=== PATIENT | male | born 1940 | race Caucasian/White ===

== ENCOUNTER 2016-11-08 11:08 | Observation (INO) | payer OTHER ==
[~2016-11-08] VITALS: Ht 175.3 cm; Wt 97.0 kg
[2016-11-08 11:16] VITALS: BP 152/70; PULSE 64; RESP 19; TEMP 97.8; O2SAT 98
[2016-11-08 11:35] VITALS: BP_SYST 113; BP_SYST 132; BP_SYST 146; BP_DIAS 61; BP_DIAS 63; BP_DIAS 70; RESP 14; RESP 15; RESP 17
--- NOTE | 2016-11-08 11:36 | PD ---
HPI Chief Complaint: Syncope/Near-Syncope Time Seen by Provider: 11:27 Travel History International Travel<30 days: No Contact w/Intl Traveler<30days: No Traveled to known affect area: No History of Present Illness HPI 76-year-old male with PMH of HTN, HLD, gout, DM, A. fib, on Xarelto presents to the ED via EMS after near syncopal episode this morning. Patient states that he was sitting at [employer] having a bloody [place], [place] when he experienced tunnel vision and felt weak and very diaphoretic. This lasted approximately 10-15 minutes and was improved after he was lying on the EMS stretcher. Per EMS the patient was hypotensive on scene. He denies associated headache, dizziness, palpitations, chest pain, shortness of breath, nausea, vomiting, weakness of the extremities. Symptoms resolved on presentation. He states "I feel a ready to go home." He's never had an episode like this in the past. He endorses taking his medications this morning. Patient endorses recent medication changes. Previously taking hydralazine 50 mg twice a day, now 100 mg 3 times a day. Followed by Dr. Madison Merino. [facility] Past Medical History Hx Anticoagulant Therapy: Yes (XARELTO) Cardiovascular Problems: Yes (CARDIAC CATH) Diabetes: Yes Social History Tobacco Use: No Allergies-Medications (Allergen,Severity, Reaction): Coded Allergies: No Known Allergies (Unverified , 11/08/16) Reported Meds & Prescriptions Reported Meds & Active Scripts Active Reported Xarelto (Rivaroxaban) 20 Mg Tab 20 Mg PO DAILY Valsartan 320 Mg Tab 320 Mg PO DAILY Amiodarone (Amiodarone HCl) 100 Mg Tab 100 Mg PO DAILY Hydralazine (Hydralazine HCl) 100 Mg Tab 100 Mg PO TID Take with meals Carvedilol 25 Mg Tab 25 Mg PO BID Metformin (Metformin HCl) 500 Mg Tab 500 Mg PO BIDPC With meals Atorvastatin (Atorvastatin Calcium) 40 Mg Tab 40 Mg PO HS Allopurinol 300 Mg Tab 300 Mg PO DAILY Review of Systems Except as stated in HPI: all other systems reviewed are Neg Physical Exam Narrative GENERAL: Well-nourished, well-developed alert white male in no acute distress. SKIN: Focused skin assessment warm, diaphoretic. HEAD: Normocephalic. EYES: No scleral icterus. No injection or drainage. PERRLA. EOMI. NECK: Supple, trachea midline. No JVD or lymphadenopathy. CARDIOVASCULAR: Irregularly irregular rate and rhythm without murmurs, gallops, or rubs. RESPIRATORY: Breath sounds clear and equal bilaterally. No accessory muscle use. GASTROINTESTINAL: Abdomen soft, non-tender, nondistended. Active bowel sounds. MUSCULOSKELETAL: No cyanosis, or edema. NEUROLOGICAL: Awake and alert. Cranial nerves II through XII intact. Motor and sensory grossly within normal limits. 5/5 muscle strength in all muscle groups. Normal speech. BACK: Nontender without obvious deformity. No CVA tenderness. Data Data Last Documented VS Vital Signs Date Time Temp Pulse Resp B/P (MAP) Pulse Ox O2 Delivery O2 Flow Rate FiO2 11/08/16 11:35 68 14 132/61 (84) 62 17 146/70 (95) 71 15 113/63 (80) 11/08/16 11:25 Room Air 11/08/16 11:16 97.8 98 Orders Orders Electrocardiogram (11/08/16 ) Electrocardiogram (11/08/16 11:25) Complete Blood Count With Diff (11/08/16 11:25) Comprehensive Metabolic Panel (11/08/16 11:25) Magnesium (Mg) (11/08/16 11:25) B-Type Natriuretic Peptide (11/08/16 11:25) Ckmb (Isoenzyme) Profile (11/08/16 11:25) Troponin I (11/08/16 11:25) Act Partial Throm Time (Ptt) (11/08/16 11:25) Prothrombin Time / Inr (Pt) (11/08/16 11:25) Urinalysis - C+S If Indicated (11/08/16 11:25) Chest, Single Ap (11/08/16 11:25) Ct Brain W/O Iv Contrast(Rout) (11/08/16 11:25) Ecg Monitoring (11/08/16 11:25) Iv Access Insert/Monitor (11/08/16 11:25) Oximetry (11/08/16 11:25) Orthostatic Vital Signs (11/08/16 11:25) Potassium Chloride (Kcl) (11/08/16 12:45) Admit Order (Ed Use Only) (11/08/16 13:27) Labs Laboratory Tests Test 11/08/16 11:30 11/08/16 12:40 White Blood Count 7.0 TH/MM3 Red Blood Count 5.03 MIL/MM3 Hemoglobin 15.6 GM/DL Hematocrit 46.9 % Mean Corpuscular Volume 93.2 FL Mean Corpuscular Hemoglobin 30.9 PG Mean Corpuscular Hemoglobin Concent 33.2 % Red Cell Distribution Width 14.7 % Platelet Count 157 TH/MM3 Mean Platelet Volume 9.2 FL Neutrophils (%) (Auto) 61.2 % Lymphocytes (%) (Auto) 26.2 % Monocytes (%) (Auto) 9.0 % Eosinophils (%) (Auto) 2.4 % Basophils (%) (Auto) 1.2 % Neutrophils # (Auto) 4.3 TH/MM3 Lymphocytes # (Auto) 1.8 TH/MM3 Monocytes # (Auto) 0.6 TH/MM3 Eosinophils # (Auto) 0.2 TH/MM3 Basophils # (Auto) 0.1 TH/MM3 CBC Comment DIFF FINAL Differential Comment Prothrombin Time 12.6 SEC Prothromb Time International Ratio 1.1 RATIO Activated Partial Thromboplast Time 31.7 SEC Blood Urea Nitrogen 19 MG/DL Creatinine 1.54 MG/DL Random Glucose 127 MG/DL Total Protein 6.4 GM/DL Albumin 3.3 GM/DL Calcium Level 8.5 MG/DL Magnesium Level 1.8 MG/DL Alkaline Phosphatase 87 U/L Aspartate Amino Transf (AST/SGOT) 16 U/L Alanine Aminotransferase (ALT/SGPT) 24 U/L Total Bilirubin 0.6 MG/DL Sodium Level 141 MEQ/L Potassium Level 3.3 MEQ/L Chloride Level 104 MEQ/L Carbon Dioxide Level 23.2 MEQ/L Anion Gap 14 MEQ/L Estimat Glomerular Filtration Rate 44 ML/MIN Total Creatine Kinase 66 U/L Troponin I LESS THAN 0.02 NG/ML B-Type Natriuretic Peptide 98 PG/ML Urine Color YELLOW Urine Turbidity CLEAR Urine pH 6.0 Urine Specific [place] 1.011 Urine Protein 30 mg/dL Urine Glucose (UA) NEG mg/dL Urine Ketones NEG mg/dL Urine Occult Blood NEG Urine Nitrite NEG Urine Bilirubin NEG Urine Urobilinogen LESS THAN 2.0 MG/DL Urine Leukocyte Esterase NEG Urine RBC 1 /hpf Urine WBC LESS THAN 1 /hpf Urine Hyaline Casts 1 /lpf Microscopic Urinalysis Comment CULT NOT INDICATED MDM Medical Decision Making Medical Screen Exam Complete: Yes Emergency Medical Condition: Yes Differential Diagnosis Arrhythmia versus orthostatic hypotension versus medication error versus hypoglycemia versus metabolic derangement versus ACS versus ICH versus other Narrative Course 76-year-old male with PMH of HTN, HLD, gout, DM, A. fib, on Xarelto presents to the ED via EMS after near syncopal episode this morning. Endorses tunnel vision , weakness and very diaphoretic. This lasted approximately 10-15 minutes and was improved after he was lying on the EMS stretcher. Per EMS the patient was hypotensive on scene. He denies associated headache, dizziness, palpitations, chest pain, shortness of breath, nausea, vomiting, weakness of the extremities. Symptoms resolved on presentation. He states "I feel a ready to go home." Endorses recent medication changes-- previously taking hydralazine 50 mg twice a day, now 100 mg 3 times a day. Followed by Dr. Merino. Vitals reviewed. Orthostatic BP positive. Physical exam reveals a nontoxic appearing, diaphoretic white male in no acute distress. No focal neuro deficits. Irregularly irregular rate without appreciable M/R/G. Chest CTAB. Abdomen soft and nontender. No lower extremity edema. CBC: WBC 7.0. Hemoglobin 15.6. Coags: INR 1.1. CMP: BUN 19, creatinine 1.54. Potassium 3.3. Glucose 127. BNP 98. UA: no culture indicated Cardiac enzymes: Negative 1. EKG: Rate 58, sinus bradycardia. NJ interval 176, QRS 139, QTC 491 ms. Normal axis. Right BBB. Evidence of old anterior IN. Reviewed by Dr. Lakhani. CXR: Cannot exclude mediastinal mass versus substernal thyroid mass. Mass effect on trachea. CT head: Mild volume loss and white matter disease per radiology read. I discussed the patient, results of the workup and plan with Dr. Lakhani. Dr. Lakhani discussed the workup with the patient and his family who are agreeable to admission. The patient is aware of the nodule in the throat. I spoke with Dr. Holbrook who agrees to accept the patient to the medicine service. Please see medicine notes for disposition. Matilde Day Nov 08, 2016 11:36
[2016-11-08] MEDS ORDERED: HYDR-3801 PO (11:46)
[2016-11-08] MEDS ORDERED: AMIO0.1T PO (11:46)
[2016-11-08] MEDS ORDERED: CARV25TA PO (11:46)
[2016-11-08] MEDS ORDERED: XARE20TA PO (11:46)
[2016-11-08] MEDS ORDERED: METF500T PO (11:46)
[2016-11-08] MEDS ORDERED: ATOR40TA16 PO (11:46)
[2016-11-08] MEDS ORDERED: ALLO300T2 PO (11:46)
[2016-11-08] MEDS ORDERED: VALS1TAB70 PO (11:46)
[2016-11-08 11:55] LABS: AUTOMATED NEUTROPHIL # 4.3 TH/MM3 (1.8-7.7); BASOPHIL # 0.1 TH/MM3 (0-0.2); BASOPHIL % 1.2 % (0.0-2.0); EOSINOPHIL # 0.2 TH/MM3 (0-0.4); EOSINOPHIL % 2.4 % (0.0-4.0); HEMATOCRIT 46.9 % (39.0-51.0); HEMO FLAGS DIFF FINAL; LYMPH % 26.2 % (9.0-44.0); LYMPHOCYTE # 1.8 TH/MM3 (1.0-4.8); MEAN CELL VOLUME 93.2 FL (80.0-100.0); MEAN CORPUSCULAR HEMOGLOBIN 30.9 PG (27.0-34.0); MEAN CORPUSCULAR HGB CONC 33.2 % (32.0-36.0); NEUT % 61.2 % (16.0-70.0); PLATELET COUNT 157 TH/MM3 (150-450); RED BLOOD COUNT 5.03 MIL/MM3 (4.50-5.90); RED CELL DISTRIBUTION WIDTH 14.7 % (11.6-17.2)
[2016-11-08 12:02] LABS: APTT (PATIENT) 31.7 SEC (24.3-30.1); INTERNATIONAL NORMALIZED RATIO 1.1 RATIO; PROTHROMBIN TIME - PATIENT 12.6 SEC (9.8-11.6)
[2016-11-08 12:15] LABS: ALT (GPT) 24 U/L (12-78); ANION GAP 14 MEQ/L (5-15); AST (GOT) 16 U/L (15-37); BICARBONATE 23.2 MEQ/L (21.0-32.0); BLOOD UREA NITROGEN 19 MG/DL (7-18); CHLORIDE 104 MEQ/L (98-107); GLOMERULAR FILTRATION RATE 44 ML/MIN (>89); MAGNESIUM 1.8 MG/DL (1.5-2.5); POTASSIUM 3.3 MEQ/L (3.5-5.1); SODIUM (NA) 141 MEQ/L (136-145)
--- NOTE | 2016-11-08 12:17 | RADRPT ---
EXAM DATE/TIME: 11/08/2016 11:57 [facility] COMPARISON: No previous studies available for comparison. INDICATIONS : Sudden onset of unresponsiveness and became diaphoretic. RADIATION DOSE: 36.45 CTDIvol (mGy) MEDICAL HISTORY : Hypertension. Diabetes mellitus type 2. SURGICAL HISTORY : Coronary artery stent. ENCOUNTER: Initial ACUITY: 1 day PAIN SCALE: 2/10 LOCATION: cranial TECHNIQUE: Multiple contiguous axial images were obtained of the head. Using automated exposure control and adj ustment of the mA and/or kV according to patient size, radiation dose was kept as low as reasonably a chievable to obtain optimal diagnostic quality images. DICOM format image data is available electro nically for review and comparison. FINDINGS: Mild volume loss and patchy hypodensity in the periventricular white matter and bilateral centrum galina iovale he, nonspecific but most likely on the basis of mild chronic microvascular ischemic disease. N o signs of acute infarct, hemorrhage or mass. CONCLUSION: Mild volume loss and white matter disease. Damián Martinez MD on November 08, 2016 at 12:15 Board Certified Radiologist. This report was verified electronically.
[2016-11-08 12:20] LABS: ALKALINE PHOSPHATASE 87 U/L (45-117); CREATINE KINASE 66 U/L (39-308); TOTAL BILIRUBIN ADULT 0.6 MG/DL (0.2-1.0)
--- NOTE | 2016-11-08 12:21 | RADRPT ---
EXAM DATE/TIME: 11/08/2016 11:54 [facility] COMPARISON: No previous studies available for comparison. INDICATIONS : Syncope, short of breath. MEDICAL HISTORY : None. SURGICAL HISTORY : Cardiac cath ENCOUNTER: Initial ACUITY: 1 day PAIN SCORE: 0/10 LOCATION: Bilateral chest FINDINGS: Cardiomegaly and aortic calcification. There is slight patient rotation to the right however the trac hea appears slightly deviated to the right of midline with findings suggesting mass effect on the lef t lateral aspect of the trachea also be related to a mediastinal mass or substernal thyroid mass. CONCLUSION: Cannot exclude a mediastinal mass versus substernal thyroid mass demonstrating mass effect on the tra giuliana. Lungs are clear. Damián Martinez MD on November 08, 2016 at 12:18 Board Certified Radiologist. This report was verified electronically.
[2016-11-08] MEDS ORDERED: POTASSIUM CHLORIDE 10 MEQ CONTROLLED RELEASE TAB PO ONE (12:45)
[2016-11-08 12:55] LABS: BLOOD, URINE NEG (NEG); COMMENT (UR) CULT NOT INDICATED; CULTURE IF INDICATED CULT NOT INDICATED; GLUCOSE,URINE NEG (NEG); HYALINE CAST, URINE 1 /lpf (RARE); KETONE, URINE NEG (NEG); NITRITE,URINE NEG (NEG); URINE COLOR YELLOW (YELLW/STRAW)
--- NOTE | 2016-11-08 12:57 | PD ---
Physical Exam Narrative I, Dr. Lakhani, have reviewed the advance practice practitioner's documentation and am in agreement, met with the patient face to face, made the diagnosis, and the medical decision making was done by me. *My assessment and Findings: Near syncope vs. arrhythmia vs. dehydration 76yo M with afib on xarelto, DM presents to the ED with c/o episode of near syncope while sitting down at breakfast today. Pt states he was weak, diaphoretic and felt like he almost passed out. As per EVAC, he had initial rhythm that showed afib vs. a flutter and then became sinus. Denies any chest pain or sob. Labs reviewed, no leukocytosis. Troponin negative. 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 Pt knows about this. CT brain negative. UA negative. Will admit pt for near syncope work up. Data Data Last Documented VS Vital Signs Date Time Temp Pulse Resp B/P (MAP) Pulse Ox O2 Delivery O2 Flow Rate FiO2 11/08/16 11:35 68 14 132/61 (84) 62 17 146/70 (95) 71 15 113/63 (80) 11/08/16 11:25 Room Air 11/08/16 11:16 97.8 98 Orders Orders Electrocardiogram (11/08/16 ) Complete Blood Count With Diff (11/08/16 11:25) Comprehensive Metabolic Panel (11/08/16 11:25) Magnesium (Mg) (11/08/16 11:25) B-Type Natriuretic Peptide (11/08/16 11:25) Ckmb (Isoenzyme) Profile (11/08/16 11:25) Troponin I (11/08/16 11:25) Act Partial Throm Time (Ptt) (11/08/16 11:25) Prothrombin Time / Inr (Pt) (11/08/16 11:25) Urinalysis - C+S If Indicated (11/08/16 11:25) Chest, Single Ap (11/08/16 11:25) Ct Brain W/O Iv Contrast(Rout) (11/08/16 11:25) Ecg Monitoring (11/08/16 11:25) Iv Access Insert/Monitor (11/08/16 11:25) Oximetry (11/08/16 11:25) Orthostatic Vital Signs (11/08/16 11:25) Potassium Chloride (Kcl) (11/08/16 12:45) Admit Order (Ed Use Only) (11/08/16 13:27) Labs Laboratory Tests Test 11/08/16 11:30 11/08/16 12:40 White Blood Count 7.0 TH/MM3 Red Blood Count 5.03 MIL/MM3 Hemoglobin 15.6 GM/DL Hematocrit 46.9 % Mean Corpuscular Volume 93.2 FL Mean Corpuscular Hemoglobin 30.9 PG Mean Corpuscular Hemoglobin Concent 33.2 % Red Cell Distribution Width 14.7 % Platelet Count 157 TH/MM3 Mean Platelet Volume 9.2 FL Neutrophils (%) (Auto) 61.2 % Lymphocytes (%) (Auto) 26.2 % Monocytes (%) (Auto) 9.0 % Eosinophils (%) (Auto) 2.4 % Basophils (%) (Auto) 1.2 % Neutrophils # (Auto) 4.3 TH/MM3 Lymphocytes # (Auto) 1.8 TH/MM3 Monocytes # (Auto) 0.6 TH/MM3 Eosinophils # (Auto) 0.2 TH/MM3 Basophils # (Auto) 0.1 TH/MM3 CBC Comment DIFF FINAL Differential Comment Prothrombin Time 12.6 SEC Prothromb Time International Ratio 1.1 RATIO Activated Partial Thromboplast Time 31.7 SEC Blood Urea Nitrogen 19 MG/DL Creatinine 1.54 MG/DL Random Glucose 127 MG/DL Total Protein 6.4 GM/DL Albumin 3.3 GM/DL Calcium Level 8.5 MG/DL Magnesium Level 1.8 MG/DL Alkaline Phosphatase 87 U/L Aspartate Amino Transf (AST/SGOT) 16 U/L Alanine Aminotransferase (ALT/SGPT) 24 U/L Total Bilirubin 0.6 MG/DL Sodium Level 141 MEQ/L Potassium Level 3.3 MEQ/L Chloride Level 104 MEQ/L Carbon Dioxide Level 23.2 MEQ/L Anion Gap 14 MEQ/L Estimat Glomerular Filtration Rate 44 ML/MIN Total Creatine Kinase 66 U/L Troponin I LESS THAN 0.02 NG/ML B-Type Natriuretic Peptide 98 PG/ML Urine Color YELLOW Urine Turbidity CLEAR Urine pH 6.0 Urine Specific [place] 1.011 Urine Protein 30 mg/dL Urine Glucose (UA) NEG mg/dL Urine Ketones NEG mg/dL Urine Occult Blood NEG Urine Nitrite NEG Urine Bilirubin NEG Urine Urobilinogen LESS THAN 2.0 MG/DL Urine Leukocyte Esterase NEG Urine RBC 1 /hpf Urine WBC LESS THAN 1 /hpf Urine Hyaline Casts 1 /lpf Microscopic Urinalysis Comment CULT NOT INDICATED MDM Supervised Visit with COLETTE: Yes Diagnosis Primary Impression: Near syncope Admitting Information Admitting Physician Requests: Observation Emily Lakhani DO Nov 08, 2016 12:57
[2016-11-08] MEDS ORDERED: SODIUM CHLORIDE 0.9% FLUSH 10 ML FLUSH IV FLUSH PRN (15:45)
[2016-11-08] MEDS ORDERED: NALOXONE HCL 0.4 MG/ML AMP IV PRN (15:45)
[2016-11-08] MEDS ORDERED: GLUCAGON 1 MG/ML VIAL OTHER PRN (15:45)
[2016-11-08] MEDS ORDERED: DEXTROSE 50% IN WATER 50 ML VIAL(D50) IV PRN (15:45)
[2016-11-08] MEDS ORDERED: ONDANSETRON HCL 4 MG/2 ML VIAL IVP PRN (15:45)
[2016-11-08] MEDS ORDERED: ACETAMINOPHEN 325 MG TAB PO PRN (15:45)
[2016-11-08 15:57] VITALS: BP 163/79; PULSE 67; RESP 18; O2SAT 96
[2016-11-08] MEDS: INSULIN ASPART SUPPLEMENTAL SCALE SQ SCH ×2 (16:00→21:00)
[2016-11-08] MEDS: SODIUM CHLOR 0.9% 1000 ML INJ 1,000 ML IV SCH (16:12)
[2016-11-08] MEDS ORDERED: PILL SPLITTER OTHER PRN (16:15)
--- NOTE | 2016-11-08 16:21 | HHI.HP ---
HPI Service [facility] Hospitalists Primary Care Physician Kayli Merino M.D. Admission Diagnosis near syncopal episode Chief Complaint: near syncopy Travel History International Travel<30 Days: No Contact w/Intl Traveler <30 Da: No Traveled to Known Affected Are: No History of Present Illness This is a pleasant 76 year old male patient with a past medical history which includes DM type 2, HTN, atrial fibrillation, CAD and sleep apnea uses CPAP nightly. Patient was having breakfast today sittin at [employer] drinking a bloody Dede[employer] when he began to have, "tunnel vision, " and felt as though he was going to pass out. EMS activated. Per patient's his blood pressure was 60/38 when EMS arrived and patient was diaphoretic. Patient denies chest pain, N/V or shortness fo breath during the episode. Patient reports that prior to this morning he felt to be in his normal state of health. The near syncopal feelings were resolved once patient was laying flat in the ambulance. Patient has recently had medication changes. 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 Coronado to Hydralazine 50 mg PO QID about 4 weeks ago. Hydralazine was then again changed to 100 mg PO TID by his Host And Hostess Dr. Conti. Patient was also started on Chlorthalidone on 10/26/16. Review of Systems Constitutional: DENIES: Fatigue, Fever, Chills Endocrine: COMPLAINS OF: Polydipsia, DENIES: Heat/cold intolerance, Polyuria Eyes: COMPLAINS OF: Blurred vision Respiratory: DENIES: Cough, Sputum production, Shortness of breath Cardiovascular: DENIES: Chest pain, Palpitations, Dyspnea on Exertion Gastrointestinal: DENIES: Abdominal pain, Constipation, Diarrhea Neurologic: DENIES: Headache, Localized weakness, Speech Problems Psychiatric: DENIES: Anxiety, Confusion, Depression Past Family Social History Past Medical History DM type 2, HTN, atrial fibrillation, CAD and sleep apnea uses CPAP nightly Past Surgical History Right partial knee replacement Reported Medications Xarelto (Rivaroxaban) 20 Mg Tab 20 Mg PO DAILY Valsartan 320 Mg Tab 320 Mg PO DAILY Amiodarone (Amiodarone HCl) 100 Mg Tab 100 Mg PO DAILY Hydralazine (Hydralazine HCl) 100 Mg Tab 100 Mg PO TID Take with meals Carvedilol 25 Mg Tab 25 Mg PO BID Metformin (Metformin HCl) 500 Mg Tab 500 Mg PO BIDPC With meals Atorvastatin (Atorvastatin Calcium) 40 Mg Tab 40 Mg PO HS Allopurinol 300 Mg Tab 300 Mg PO DAILY Chlorthalidone Allergies: Coded Allergies: No Known Allergies (Unverified , 11/08/16) Family History Father secondary to [place] at age 55 Mother had CVA in her 70's then at 93 brother also has heart disease Social History Patient lives with Quit smoking cigarettes in 1983 prior to that smoked for approximately 20 years Rare ETOH use Physical Exam Vital Signs Vital Signs Date Time Temp Pulse Resp B/P (MAP) Pulse Ox O2 Delivery O2 Flow Rate FiO2 11/08/16 11:35 68 14 132/61 (84) 62 17 146/70 (95) 71 15 113/63 (80) 11/08/16 11:25 19 Room Air 11/08/16 11:16 97.8 64 19 152/70 (97) 98 Physical Exam GENERAL: This is a well-nourished, well-developed patient, in no apparent distress. ENT: Nose without bleeding, purulent drainage or septal hematoma. Throat without erythema, tonsillar hypertrophy or exudate. Uvula midline. Airway patent. NECK: Trachea midline. No JVD or lymphadenopathy. Supple, nontender. no carotid bruit auscultated CARDIOVASCULAR: irregularly irregular without murmurs, gallops, or rubs. RESPIRATORY: Clear to auscultation. Breath sounds equal bilaterally. No wheezes , rales, or rhonchi. MUSCULOSKELETAL: Extremities without clubbing, cyanosis, or edema. No joint tenderness, effusion, or edema noted. No calf tenderness. Negative Homans sign bilaterally. NEUROLOGICAL: Awake and alert. Cranial nerves II through XII intact. Motor and sensory grossly within normal limits. Five out of 5 muscle strength in all muscle groups. Normal speech. Laboratory Laboratory Tests Test 11/08/16 11:30 11/08/16 12:40 White Blood Count 7.0 Red Blood Count 5.03 Hemoglobin 15.6 Hematocrit 46.9 Mean Corpuscular Volume 93.2 Mean Corpuscular Hemoglobin 30.9 Mean Corpuscular Hemoglobin Concent 33.2 Red Cell Distribution Width 14.7 Platelet Count 157 Mean Platelet Volume 9.2 Neutrophils (%) (Auto) 61.2 Lymphocytes (%) (Auto) 26.2 Monocytes (%) (Auto) 9.0 Eosinophils (%) (Auto) 2.4 Basophils (%) (Auto) 1.2 Neutrophils # (Auto) 4.3 Lymphocytes # (Auto) 1.8 Monocytes # (Auto) 0.6 Eosinophils # (Auto) 0.2 Basophils # (Auto) 0.1 CBC Comment DIFF FINAL Differential Comment Prothrombin Time 12.6 Prothromb Time International Ratio 1.1 Activated Partial Thromboplast Time 31.7 Blood Urea Nitrogen 19 Creatinine 1.54 Random Glucose 127 Total Protein 6.4 Albumin 3.3 Calcium Level 8.5 Magnesium Level 1.8 Alkaline Phosphatase 87 Aspartate Amino Transf (AST/SGOT) 16 Alanine Aminotransferase (ALT/SGPT) 24 Total Bilirubin 0.6 Sodium Level 141 Potassium Level 3.3 Chloride Level 104 Carbon Dioxide Level 23.2 Anion Gap 14 Estimat Glomerular Filtration Rate 44 Total Creatine Kinase 66 Troponin I LESS THAN 0.02 B-Type Natriuretic Peptide 98 Urine Color YELLOW Urine Turbidity CLEAR Urine pH 6.0 Urine Specific [place] 1.011 Urine Protein 30 Urine Glucose (UA) NEG Urine Ketones NEG Urine Occult Blood NEG Urine Nitrite NEG Urine Bilirubin NEG Urine Urobilinogen LESS THAN 2.0 Urine Leukocyte Esterase NEG Urine RBC 1 Urine WBC LESS THAN 1 Urine Hyaline Casts 1 Microscopic Urinalysis Comment CULT NOT INDICATED Result Diagram: 11/08/16 1130 11/08/16 1130 Imaging Last Impressions Head CT 11/08/16 1125 Signed Impressions: Service Date/Time: Tuesday, November 08, 2016 11:57 - CONCLUSION: Mild volume loss and white matter disease. Damián Martinez MD Chest X-Ray 11/08/16 1125 Signed Impressions: Service Date/Time: Tuesday, November 08, 2016 11:54 - CONCLUSION: Cannot exclude a mediastinal mass versus substernal thyroid mass demonstrating mass effect on the trachea. Lungs are clear. Damián Martinez MD Caprini VTE Risk Assessment Caprini VTE Risk Assessment: Mod/High Risk (score >= 2) Caprini Risk Assessment Model Point Value = 1 Point Value = 2 Point Value = 3 Point Value = 5 Age 41-60 Minor surgery BMI > 25 kg/m2 Swollen legs Varicose veins or History of unexplained or recurrent spontaneous Oral contraceptives or hormone replacement Sepsis (< 1 month) Serious lung disease, including pneumonia (< 1 month) Abnormal pulmonary function Acute myocardial infarction Congestive heart failure (< 1 month) History of inflammatory bowel disease Medical patient at bed rest Age 61-74 Arthroscopic surgery Major open surgery (> 45 min) Laparoscopic surgery (> 45 min) Malignancy Confined to bed (> 72 hours) Immobilizing plaster cast Central venous access Age >= 75 History of VTE Family history of VTE Factor V Leiden Prothrombin [id number] Lupus anticoagulant Anticardiolipin antibodies Elevated serum homocysteine Heparin-induced thrombocytopenia Other congenital or acquired thrombophilia Stroke (< 1 month) Elective arthroplasty Hip, pelvis, or leg fracture Acute spinal cord injury (< 1 month) Prophylaxis Regimen Total Risk Factor Score Risk Level Prophylaxis Regimen 0-1 Low Early ambulation 2 Moderate Order ONE of the following: *Sequential Compression Device (SCD) *Heparin 5000 units SQ BID 3-4 Higher Order ONE of the following medications: *Heparin 5000 units SQ TID *Enoxaparin/Lovenox 40 mg SQ daily (WT < 150 kg, CrCl > 30 mL/min) *Enoxaparin/Lovenox 30 mg SQ daily (WT < 150 kg, CrCl > 10-29 mL/min) *Enoxaparin/Lovenox 30 mg SQ BID (WT < 150 kg, CrCl > 30 mL/min) AND/OR *Sequential Compression Device (SCD) 5 or more Highest Order ONE of the following medications: *Heparin 5000 units SQ TID (Preferred with Epidurals) *Enoxaparin/Lovenox 40 mg SQ daily (WT < 150 kg, CrCl > 30 mL/min) *Enoxaparin/Lovenox 30 mg SQ daily (WT < 150 kg, CrCl > 10-29 mL/min) *Enoxaparin/Lovenox 30 mg SQ BID (WT < 150 kg, CrCl > 30 mL/min) AND *Sequential Compression Device (SCD) Assessment and Plan Problem List: (1) Near syncope ICD Codes: R55 - Syncope and collapse Status: Acute (2) Acute kidney injury superimposed on CKD ICD Codes: N17.9 - Acute kidney failure, unspecified; N18.9 - Chronic kidney disease, unspecified Status: Acute (3) HTN (hypertension) ICD Codes: I10 - Essential (primary) hypertension Status: Chronic (4) Diabetes ICD Codes: E11.9 - Type 2 diabetes mellitus without complications Status: Chronic (5) CAD (coronary artery disease) ICD Codes: I25.10 - Atherosclerotic heart disease of [place] coronary artery without angina pectoris Status: Chronic (6) A-fib ICD Codes: I48.91 - Unspecified atrial fibrillation Status: Chronic (7) Thyroid mass ICD Codes: E07.9 - Disorder of thyroid, unspecified Status: Chronic (8) Sleep apnea ICD Codes: G47.30 - Sleep apnea, unspecified Status: Chronic Assessment and Plan .Near syncope with orthostatic hypotension DAISY on CKD likely related to dehydration - IV hydration NS at 80ml/H - continuous cardiac telemetry - Hold diuretic - decrease hydralazine to 50 mg PO TID - Monitor BP trend - orthostatic vital signs once per shift - OOB with assistance HTN - home medications include (Valsartan 320mg PO daily, Hydralazine 100 mg PO TID , Carvedilol 25 mg PO BID) - continue Carvedilol 25 mg PO BID - decrease hydralazine to 50 mg TID - hold Valsartan recheck renal function in AM may restart in AM - monitor BP trend Multinodular goiter - Patient has history of multinodular goiter - CXR shows midsternal mass vs substernal mass with displaced trachea - CT chest ordered to further evaluate DM type 2 - hold Metformin - diabetic diet - accuckecks ACHS with SSI Atrial fibrillation - rate controlled - continue amiodarone - continue Xarelto CAD HLD - continue carvedilol 25 mg BID and continue Atorvastatin Sleep apnea uses CPAP nightly - Patient use home CPAP Hypokalemia - replaced in ER, recheck in AM DVT prophylaxis patient on Xarelto Patient examined. Assessment and plan formulated with Trixie Perales PA-C. I agree with the above Orthostatic hypotension. daisy/ckd. appears dehydrated recently started on chlorthalidone and hydralazine increased. IVF. recheck bmp, orthostatics. telemetry.PT in AM replace kcl Problem Qualifiers (1) A-fib: Qualified Codes: I48.0 - Paroxysmal atrial fibrillation Annette Perales Nov 08, 2016 16:21 Alexy Posadas MD Nov 08, 2016 21:16
--- NOTE | 2016-11-08 16:39 | RADRPT ---
EXAM DATE/TIME: 11/08/2016 16:30 [place] COMPARISON: CHEST SINGLE AP, November 08, 2016, 11:54. INDICATIONS : Abnormal chest xray,evaluate for possible mass RADIATION DOSE: 6.86 CTDIvol (mGy) MEDICAL HISTORY : Hypertension. Diabetes mellitus type 2. SURGICAL HISTORY : Coronary artery stent. ENCOUNTER: Initial ACUITY: 1 day PAIN SCALE: 2/10 LOCATION: chest TECHNIQUE: Volumetric scanning of the chest was performed. Using automated exposure control and adjustment of t he mA and/or kV according to patient size, radiation dose was kept as low as reasonably achievable to obtain optimal diagnostic quality images. DICOM format image data is available electronically for r eview and comparison. Follow-up recommendations for detected pulmonary nodules are based at a minimum on nodule size and pa tient risk factors according to Fleischner Society Guidelines. FINDINGS: LUNGS: There is no consolidation or pneumothorax. No concerning pulmonary nodule is visualized. PLEURAE: There is no pleural thickening or pleural effusion. MEDIASTINUM: There is aseptic or mass that looks like it is arising from theleft lobe of the thyroid. 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 Modera te vascular calcifications are noted. Moderate coronary calcifications are noted. The trachea is de viated substantially to the right by this mass. There is encroachment on the esophagus as well. AXILLAE: Within normal limits. No lymphadenopathy. MUSCULOSKELETAL: Degenerative changes present in the thoracic spine. MISCELLANEOUS: The visualized upper abdominal organs demonstrate no acute abnormality. 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 This could be confirmed by comparison with old chest x-rays. This is causing tracheal deviation and esophageal compression. Gilbert Tucker MD FACR on November 08, 2016 at 16:35 Board Certified Radiologist. This report was verified electronically.
[2016-11-08 17:03] VITALS: BP 137/80; PULSE 79; RESP 22; TEMP 98.3; O2SAT 94
[2016-11-08 17:10] VITALS: BP_SYST 161; BP_SYST 162; BP_DIAS 75; BP_DIAS 80
[2016-11-08 20:05] VITALS: BP 194/98; PULSE 69; RESP 18; TEMP 97.9; O2SAT 93
[2016-11-08] MEDS: SODIUM CHLORIDE 0.9% FLUSH 10 ML FLUSH IV FLUSH SCH (21:00)
[2016-11-08] MEDS ORDERED: ATORVASTATIN 40 MG TAB PO SCH (21:00)
[2016-11-08] MEDS ORDERED: hydrALAZINE HCL 50 MG TAB PO ONE (21:30)
[2016-11-08] MEDS ORDERED: hydrALAZINE HCL 50 MG TAB PO SCH (22:00)
[2016-11-08] MEDS: CARVEDILOL 12.5 MG TAB PO SCH (23:22)
[2016-11-09] VITALS (9 sets, daily range): BP systolic 131–197; BP diastolic 66–99; PULSE 51–70; RESP 18–20; TEMP 97.7–98.6; O2SAT 94–96
[2016-11-09] MEDS: cloNIDine HCL 0.1 MG TAB PO PRN ×3 (02:20→14:41)
[2016-11-09] MEDS: SODIUM CHLOR 0.9% 1000 ML INJ 1,000 ML IV SCH (04:30)
[2016-11-09] MEDS: hydrALAZINE HCL 50 MG TAB PO SCH ×2 (06:11→12:17)
[2016-11-09] MEDS: INSULIN ASPART SUPPLEMENTAL SCALE SQ SCH ×2 (06:30→11:00)
[2016-11-09 07:12] LABS: BICARBONATE 25.7 MEQ/L (21.0-32.0); POTASSIUM 3.3 MEQ/L (3.5-5.1)
[2016-11-09] MEDS ORDERED: POTASSIUM CHLORIDE 20 MEQ CONTROLLED RELEASE TAB PO ONE (08:00)
[2016-11-09] MEDS ORDERED: MAGNESIUM SULFATE 1 GM PREMIX 100 ML IV ONE (08:00)
--- NOTE | 2016-11-09 08:07 | HHI.PR ---
Subjective Remarks Patient reports feeling back to his baseline today no events overnight patient able to stand and ambulate without dizziness or feeling lightheaded Objective Vitals Vital Signs Date Time Temp Pulse Resp B/P (MAP) Pulse Ox O2 Delivery O2 Flow Rate FiO2 11/09/16 07:26 97.8 58 18 172/89 (116) 95 11/09/16 03:34 98.6 57 18 139/66 (90) 96 11/09/16 00:06 98.0 70 18 181/99 (126) 95 190/97 (128) 197/99 (131) 11/08/16 20:05 97.9 69 18 194/98 (130) 93 11/08/16 17:10 161/75 (103) 162/80 (107) 11/08/16 17:03 98.3 79 22 137/80 (99) 94 11/08/16 16:57 11/08/16 15:57 67 18 163/79 (107) 96 Room Air 11/08/16 11:35 68 14 132/61 (84) 62 17 146/70 (95) 71 15 113/63 (80) 11/08/16 11:25 19 Room Air 11/08/16 11:16 97.8 64 19 152/70 (97) 98 Result Diagram: 11/08/16 1130 11/09/16 0445 Other Results Laboratory Tests Test 11/08/16 11:30 11/08/16 12:40 11/09/16 04:45 White Blood Count 7.0 TH/MM3 Red Blood Count 5.03 MIL/MM3 Hemoglobin 15.6 GM/DL Hematocrit 46.9 % Mean Corpuscular Volume 93.2 FL Mean Corpuscular Hemoglobin 30.9 PG Mean Corpuscular Hemoglobin Concent 33.2 % Red Cell Distribution Width 14.7 % Platelet Count 157 TH/MM3 Mean Platelet Volume 9.2 FL Neutrophils (%) (Auto) 61.2 % Lymphocytes (%) (Auto) 26.2 % Monocytes (%) (Auto) 9.0 % Eosinophils (%) (Auto) 2.4 % Basophils (%) (Auto) 1.2 % Neutrophils # (Auto) 4.3 TH/MM3 Lymphocytes # (Auto) 1.8 TH/MM3 Monocytes # (Auto) 0.6 TH/MM3 Eosinophils # (Auto) 0.2 TH/MM3 Basophils # (Auto) 0.1 TH/MM3 CBC Comment DIFF FINAL Differential Comment Prothrombin Time 12.6 SEC Prothromb Time International Ratio 1.1 RATIO Activated Partial Thromboplast Time 31.7 SEC Blood Urea Nitrogen 19 MG/DL 19 MG/DL Creatinine 1.54 MG/DL 1.33 MG/DL Random Glucose 127 MG/DL 99 MG/DL Total Protein 6.4 GM/DL Albumin 3.3 GM/DL Calcium Level 8.5 MG/DL 8.6 MG/DL Magnesium Level 1.8 MG/DL Alkaline Phosphatase 87 U/L Aspartate Amino Transf (AST/SGOT) 16 U/L Alanine Aminotransferase (ALT/SGPT) 24 U/L Total Bilirubin 0.6 MG/DL Sodium Level 141 MEQ/L 140 MEQ/L Potassium Level 3.3 MEQ/L 3.3 MEQ/L Chloride Level 104 MEQ/L 105 MEQ/L Carbon Dioxide Level 23.2 MEQ/L 25.7 MEQ/L Anion Gap 14 MEQ/L 9 MEQ/L Estimat Glomerular Filtration Rate 44 ML/MIN 52 ML/MIN Total Creatine Kinase 66 U/L Troponin I LESS THAN 0.02 NG/ML B-Type Natriuretic Peptide 98 PG/ML Urine Color YELLOW Urine Turbidity CLEAR Urine pH 6.0 Urine Specific [place] 1.011 Urine Protein 30 mg/dL Urine Glucose (UA) NEG mg/dL Urine Ketones NEG mg/dL Urine Occult Blood NEG Urine Nitrite NEG Urine Bilirubin NEG Urine Urobilinogen LESS THAN 2.0 MG/DL Urine Leukocyte Esterase NEG Urine RBC 1 /hpf Urine WBC LESS THAN 1 /hpf Urine Hyaline Casts 1 /lpf Microscopic Urinalysis Comment CULT NOT INDICATED Imaging Last Impressions Head CT 11/08/161124 Signed Impressions: Service Date/Time: Tuesday, November 08, 2016 11:57 - CONCLUSION: Mild volume loss and white matter disease. Damián Martinez MD Chest X-Ray 11/08/161124 Signed Impressions: Service Date/Time: Tuesday, November 08, 2016 11:54 - CONCLUSION: Cannot exclude a mediastinal mass versus substernal thyroid mass demonstrating mass effect on the trachea. Lungs are clear. Damián Martinez MD Objective Remarks GENERAL: This is a well-nourished, well-developed patient, in no apparent distress. ENT: Nose without bleeding, purulent drainage or septal hematoma. Throat without erythema, tonsillar hypertrophy or exudate. Uvula midline. Airway patent. NECK: Trachea midline. No JVD or lymphadenopathy. Supple, nontender. no carotid bruit auscultated CARDIOVASCULAR: irregularly irregular without murmurs, gallops, or rubs. RESPIRATORY: Clear to auscultation. Breath sounds equal bilaterally. No wheezes , rales, or rhonchi. MUSCULOSKELETAL: Extremities without clubbing, cyanosis, or edema. No joint tenderness, effusion, or edema noted. No calf tenderness. Negative Homans sign bilaterally. NEUROLOGICAL: Awake and alert. Cranial nerves II through XII intact. Motor and sensory grossly within normal limits. Five out of 5 muscle strength in all muscle groups. Normal speech A/P Problem List: (1) Near syncope ICD Codes: R55 - Syncope and collapse Status: Acute (2) Acute kidney injury superimposed on CKD ICD Codes: N17.9 - Acute kidney failure, unspecified; N18.9 - Chronic kidney disease, unspecified Status: Acute (3) HTN (hypertension) ICD Codes: I10 - Essential (primary) hypertension Status: Chronic (4) Diabetes ICD Codes: E11.9 - Type 2 diabetes mellitus without complications Status: Chronic (5) CAD (coronary artery disease) ICD Codes: I25.10 - Atherosclerotic heart disease of [place] coronary artery without angina pectoris Status: Chronic (6) A-fib ICD Codes: I48.91 - Unspecified atrial fibrillation Status: Chronic (7) Thyroid mass ICD Codes: E07.9 - Disorder of thyroid, unspecified Status: Chronic (8) Sleep apnea ICD Codes: G47.30 - Sleep apnea, unspecified Status: Chronic Assessment and Plan .Near syncope with orthostatic hypotension- resolved DAISY on CKD likely related to dehydration- improved - IV hydration NS at 80ml/H - continuous cardiac telemetry - Hold diuretic - hydralazine to 50 mg PO four times a day - Monitor BP trend - orthostatic vital signs reviewed and negative for orthostatic hypotension - OOB with assistance HTN - home medications include (Valsartan 320mg PO daily, Hydralazine 100 mg PO TID , Carvedilol 25 mg PO BID) - continue Carvedilol 25 mg PO BID - hydralazine to 50 mg four times a daily - resume Valsartan - monitor BP trend Multinodular goiter - Patient has history of multinodular goiter - CXR shows midsternal mass vs substernal mass with displaced trachea - CT chest reviewed and reveals probable large sub-sternal goiter. Causing tracheal deviation and esophageal compression - CT report provided to patient stressed the importance to follow-up with PCP for close monitoring DM type 2 - hold Metformin while in hospital - diabetic diet - accuckecks ACHS with SSI Atrial fibrillation - rate controlled - continue amiodarone - continue Xarelto CAD HLD - continue carvedilol 25 mg BID and continue Atorvastatin Sleep apnea uses CPAP nightly - Patient use home CPAP Hypokalemia - replaced with potassium chloride 40 meq once -magnesium 1.8, give magnesium 1 gram IV DVT prophylaxis patient on Xarelto Patient status improved will DC home in stable condition on diabetic diet Will DC on Xarelto (Rivaroxaban) 20 Mg Tab 20 Mg PO DAILY Valsartan 320 Mg Tab 320 Mg PO DAILY Amiodarone (Amiodarone HCl) 100 Mg Tab 100 Mg PO DAILY Hydralazine (Hydralazine HCl) 50 Mg Tab 100 Mg PO four times a day Take with meals Carvedilol 25 Mg Tab 25 Mg PO BID Metformin (Metformin HCl) 500 Mg Tab 500 Mg PO BIDPC With meals Atorvastatin (Atorvastatin Calcium) 40 Mg Tab 40 Mg PO HS Allopurinol 300 Mg Tab 300 Mg PO DAILY Patient to follow up with Cardiology Dr. Coronado in 1-2 weeks Patient to follow up with PCP Dr. Merino in 1 week Problem Qualifiers (1) A-fib: Qualified Codes: I48.0 - Paroxysmal atrial fibrillation Annette Perales Nov 09, 2016 08:07
[2016-11-09] MEDS ORDERED: HYDR-3800 PO (08:09)
[2016-11-09] MEDS: SODIUM CHLORIDE 0.9% FLUSH 10 ML FLUSH IV FLUSH SCH (08:10)
[2016-11-09] MEDS ORDERED: CHLOR50 PO (08:10)
[2016-11-09] MEDS: CARVEDILOL 12.5 MG TAB PO SCH (08:13)
[2016-11-09] MEDS ORDERED: ALLOPURINOL 300 MG TAB PO SCH (09:00)
[2016-11-09] MEDS ORDERED: RIVAROXABAN 20 MG TAB PO SCH (09:00)
[2016-11-09] MEDS ORDERED: AMIODARONE 200 MG TAB PO SCH (09:00)
[2016-11-09] MEDS ORDERED: VALSARTAN 160 MG TAB PO SCH (09:00)
--- NOTE | 2016-11-09 14:11 | EKG ---
Date Performed: 11/08/2016 Time Performed: 11:19:34 PTAGE: 76 years EKG: SINUS BRADYCARDIA RIGHT BUNDLE BRANCH BLOCK LEFT ANTERIOR FASCICULAR BLOCK ABNORMAL ECG NO PREVIOUS TRACING Clinical correlation recommended. DOCTOR: Yeison Watkins Interpretating Date/Time 11/09/2016 14:11:13
== END 2016-11-09 16:41 | disposition home or self-care (01) ==
LOC: NEPC 11:08 → NEDA 13:28 → NEPGCP 17:00
PROVIDERS: ADMIT Hospitalist; ATTEND Hospitalist
DX: R55 Syncope and collapse (principal); N17.9 Acute kidney failure, unspecified; N18.9 Chronic kidney disease, unspecified; I13.0 Hypertensive heart and chronic kidney disease with heart failure and stage 1 through stage 4 chronic kidney disease, or unspecified chronic kidney disease; E11.9 Type 2 diabetes mellitus without complications; I25.10 Atherosclerotic heart disease of native coronary artery without angina pectoris; I48.91 Unspecified atrial fibrillation; E07.9 Disorder of thyroid, unspecified; G47.30 Sleep apnea, unspecified; E87.6 Hypokalemia; E86.0 Dehydration; E78.5 Hyperlipidemia, unspecified; Z79.84 Long term (current) use of oral hypoglycemic drugs; Z79.01 Long term (current) use of anticoagulants; Z95.5 Presence of coronary angioplasty implant and graft; Z96.651 Presence of right artificial knee joint
CPT/HCPCS: 70450; 71010; 71250; 80048; 80053; 81001; 82550; 82948; 83735; 83880; 84484; 85025; 85610; 85730; 93005; 96361; 96365; 97161; 99285; G0378; G8987; G8988; J3475; J7030